=== PATIENT | male | born 1980 | race Caucasian/White ===

== ENCOUNTER 2019-01-29 19:42 | Emergency (ER) | payer SELFPAY ==
--- NOTE | 2019-01-29 19:48 | ED Physician Documentation ---
General Adult - HISTORIAN Historian: patient - HPI Stated Complaint: anxiety meds "I am out of meds" Chief Complaint: Psychological Disorder Onset: other (he has been out of meds x 3 days) Timing: worse Severity: mild Further Comments: yes (He states he was taken into custody of the police - he is out of his meds for his psychological disorder and anxiety. He also notes he has a hernia - he denies any current pain he is however very anxious) Last known Well Code/Unknown Code: Unknown - ROS CONST: no problems CVS/RESP: denies: shortness of breath, cough GI/: denies: abdominal pain, vomiting, nausea, diarrhea NEURO/PSYCH: denies: headache - PAST HX Past History: other (depression and anxiety ) Allergies/Adverse Reactions: Allergies Allergy/AdvReac Type Severity Reaction Status Date / Time No Known Allergies Allergy Verified 01/29/19 20:16 Home Medications: Ambulatory Orders Medication Instructions Recorded Unobtainable 01/29/19 - SOCIAL HX Smoking History: cigarettes Alcohol Use: occasionally Drug Use: none - FAMILY HX Family History: No - REVIEWED ASSESSMENTS Nursing Assessment Reviewed: Yes Vitals Reviewed: Yes General Adult Physical Exam - PHYSICAL EXAM GENERAL APPEARANCE: mild distress EENT: eye inspection normal, no signs of dehydration NECK: normal inspection RESPIRATORY: no resp distress, chest non-tender CVS: reg rate & rhythm, heart sounds normal ABDOMEN: soft, normal bowel sounds, no distension, non-tender BACK: normal inspection SKIN: warm/dry, normal color EXTREMITIES: non-tender, normal range of motion NEURO: oriented X3 Discharge Clincal Impression: Anxiety Referrals: Merrick Christensen MD [STAFF PHYSICIAN] - 2 Days Comments: 1. Continue meds 2. Follow up with PCP when available for possible hernia 3. Increase fluids 4. Return to ER for any increased concerns Condition: Stable Disposition: 01 HOME, SELF-CARE Decision to Admit: NO Date of Decison to Admit: 01/29/19 Decision Time: 20:15
[2019-01-29] MEDS: hydrOXYzine HCL 25 MG TABLET PO ONE (20:06)
[2019-01-29 20:36] VITALS: BP 138/86
== END 2019-01-29 20:25 | disposition home or self-care (01) ==
LOC: ED 19:42
DX: F41.9 Anxiety disorder, unspecified (principal); F17.210 Nicotine dependence, cigarettes, uncomplicated
CPT/HCPCS: 99282; 99283

== ENCOUNTER 2019-03-07 18:57 | Emergency (ER) | payer SELFPAY ==
--- NOTE | 2019-03-07 19:08 | ED Physician Documentation ---
General Adult - HISTORIAN Historian: patient - HPI Stated Complaint: I have a hernia Chief Complaint: General Adult Additional Information: Patient presents to ED with a 2 year history of right inguinal hernia pain. Patient is accompanied by [facility] marine safety officer. Patient reports he was supposed to have hernia repair surgery, however, he was arrested and did not get the surgery done. He reports the hernia was tolerable until his arrest, when he had a scuffle with police and it seems to be worse now. Patient reports RLQ pain, radiating to his scrotum, rates his pain 8/10, dullache with episodes of sharp stabbing pain. Onset: other (2 years) Timing: worse Severity: moderate - ROS CONST: denies: fever EYES/ENT: denies: problems with vision CVS/RESP: denies: chest pain, shortness of breath GI/: abdominal pain, nausea, diarrhea. denies: vomiting MS/SKIN/LYMPH: none NEURO/PSYCH: denies: headache - PAST HX Past History: none Other History: none Surgeries/Procedures: none Allergies/Adverse Reactions: Allergies Allergy/AdvReac Type Severity Reaction Status Date / Time No Known Allergies Allergy Verified 03/07/19 19:12 Home Medications: Ambulatory Orders Medication Instructions Recorded NK 03/07/19 - SOCIAL HX Smoking History: cigarettes, greater than 1 pack/day Alcohol Use: none Drug Use: none - FAMILY HX Family History: Yes - VITAL SIGNS Vital Signs: Vital Signs Temp Pulse Resp BP Pulse Ox 138/86 01/29/19 20:25 - REVIEWED ASSESSMENTS Nursing Assessment Reviewed: Yes Vitals Reviewed: Yes Progress - Progress Progress: [address] Lynn, ED at [place]. Will accept patient in transfer. ED Results Lab/Radiology - Radiology Radiology Impressions: Report Submission Date: Mar 07, 2019 8:10:00 PM ENGINEERING ANALYST Patient Study Name: OMAR NYE Date: Mar 07, 2019 7:47:35 PM ENGINEERING ANALYST Modality Type: CT\SR Gender: M Description: CT ABD PELVIS W/ CON : 76 Institution: [facility] Physician: ISHMAEL GUERRA CT abdomen and pelvis with intravenous contrast HISTORY Abdominal pain TECHNIQUE Images through the abdomen and pelvis were obtained following intravenous contrast administration. FINDINGS The lung bases, liver, gallbladder, spleen, pancreas, kidneys and adrenal glands are normal. There is no hydronephrosis, hydroureter, free intraperitoneal air or fluid. There is no bowel obstruction. Stomach is significantly distended with food. There is extensive amount of fecal material throughout the entire colon. Right inguinal hernia is present and contains unobstructed small bowel loops. The aorta enhances normally. IMPRESSION Constipation. Right inguinal hernia with small bowel herniation. Electronically signed on Mar 07, 2019 8:10:00 PM ENGINEERING ANALYST by: Juan Alberto Choudhury General Adult Physical Exam - PHYSICAL EXAM GENERAL APPEARANCE: no distress EENT: ALEC NECK: supple RESPIRATORY: no resp distress, breath sounds normal CVS: reg rate & rhythm ABDOMEN: soft, tenderness (RLQ), other (right groin with mass like protrusion from ASIS/pelvis to base of penis, tender. ) BACK: normal inspection, no CVA tenderness SKIN: warm/dry, normal color EXTREMITIES: non-tender NEURO: oriented X3, mood/affect nml Discharge Clincal Impression: Incarcerated right inguinal hernia Referrals: Primary Doctor,No [Primary Care Provider] - 2 Days Additional Instructions: Patient will go by private vehicle (via [facility] [employer]) to [place] for surgical consultation. Condition: Stable Disposition: XFER SHT-TRM HOSP Decision to Admit: NO Date of Decison to Admit: 03/07/19 Decision Time: 20:34
--- NOTE | 2019-03-07 20:14 | Diagnostic Imaging Report ---
PATIENT MR#: [id number] PATIENT PATIENT NAME: OMAR NYE DATE OF : 1980 REFERRING PHYSICIAN: Bren Gaona EXAM DATE: 03/07/2019 ACCESSION NUMBER: [id number] EXAM DESCRIPTION: CT ABD PELVIS W/ CON CT abdomen and pelvis with intravenous contrast HISTORY Abdominal pain TECHNIQUE Images through the abdomen and pelvis were obtained following intravenous contrast administration. FINDINGS The lung bases, liver, gallbladder, spleen, pancreas, kidneys and adrenal glands are normal. There i s no hydronephrosis, hydroureter, free intraperitoneal air or fluid. There is no bowel obstruction. Stom ach is significantly distended with food. There is extensive amount of fecal material throughout the entire colon. Right inguinal hernia is present and contains unobstructed small bowel loops. The aorta enhances normally. IMPRESSION Constipation. Right inguinal hernia with small bowel herniation. Read by: Dr. Juan Alberto Choudhury Transcribed by: Transcribed Date: Electronically signed by: Dr. Juan Alberto Choudhury Date signed: 03/07/2019 8:13:30 PM
[2019-03-07 21:55] VITALS: BP 116/74
[2019-03-08 07:16] LABS: BASOPHILS % 0.4 % (0.0-1.5)
[2019-03-08 07:17] LABS: eGFR (Non-African) > 60
== END 2019-03-07 20:50 | disposition short-term general hospital (02) ==
LOC: ED 18:57
DX: K40.90 Unilateral inguinal hernia, without obstruction or gangrene, not specified as recurrent (principal)
CPT/HCPCS: 74177; 80048; 85025; 99282; 99283; Q9967; S1016